=== PATIENT | male | born 1945 | race Asian ===

== ENCOUNTER → 2022-03-23 | Day surgery (SDC) | payer MEDICARE ==
[2022-03-17 15:13] LABS: BASOPHILS % 0.6 % (0.0-1.0); EOSINOPHILS # (AUTO) 0.1 (0.0-0.4); EOSINOPHILS % 1.4 % (0.0-6.0); HEMATOCRIT 43.2 % (38.2-49.6); HEMOGLOBIN 14.1 g/dL (14.0-18.0); LYMPHOCYTES # (AUTO) 1.5 (1.0-3.2); LYMPHOCYTES % 21.3 % (18.0-39.1); MEAN CORPUSCULAR HEMOGLOBIN 32.4 pg (28-32); MEAN CORPUSCULAR HGB CONC 32.6 g/dL (31-35); MEAN CORPUSCULAR VOLUME 99.3 fL (81-99); MONOCYTES # (AUTO) 0.6 (0.2-0.8); MONOCYTES % 8.8 % (4.4-11.3); NEUTROPHILS # (AUTO) 4.8 (2.1-6.9); NEUTROPHILS % 67.5 % (38.7-80.0); PLATELET COUNT 164 x10e3/uL (140-360); RED BLOOD COUNT 4.35 x10e6/uL (4.3-5.7)
[~2022-03-23] MED LIST: COQ-10100 MG PO; FENTANYL CITRATE/PF 100MCG/2 ML INJ ONE; FINASTERIDE5 MG PO; FISH OIL 1,0001 EACH; FLAX SEED OIL1 EACH; FLOMAX0.4 MG PO; MIDAZOLAM HCL 2 MG/2 ML VIAL ONE; OMEGA 3 1,0001 EACH PO; OR PHACO EYE KIT ONE; PALMETTO PO; PREOP PHACO EYE KIT ONE; VITAMIN B-121000 MCG PO; VITAMIN B3 PO
[2022-03-23 10:07] VITALS: BP 109/68
== END | disposition home or self-care (01) ==
LOC: OR 07:46
PROVIDERS: ATTEND Ophthalmology
DX: H25.11 Age-related nuclear cataract, right eye (principal); Z01.812 Encounter for preprocedural laboratory examination
CPT/HCPCS: 36415; 66984; 85025; 93005; J2250; J3010; V2632

== ENCOUNTER → 2022-04-06 | Day surgery (SDC) | payer MEDICARE ==
[2022-04-06 09:47] VITALS: BP 125/68
== END | disposition home or self-care (01) ==
LOC: OR 07:23
PROVIDERS: ATTEND Ophthalmology
DX: H25.12 Age-related nuclear cataract, left eye (principal); N40.0 Benign prostatic hyperplasia without lower urinary tract symptoms; Z79.899 Other long term (current) drug therapy
CPT/HCPCS: 66984; J2250; J3010; V2632